=== PATIENT | female | born 1965 | race Two or more races ===

== ENCOUNTER 2019-02-02 09:44 | Inpatient (IN) | payer MEDICAID ==
[2019-01-19 11:08] LABS: BASOPHILS % (AUTO) 1.3 % (0.0-2.0); EOSINOPHILS % (AUTO) 3.6 % (0.0-3.0); HEMATOCRIT 47.2 % (37.0-47.0); HEMOGLOBIN 15.7 G/DL (12.0-16.0); LYMPHOCYTES % (AUTO) 33.1 % (20.0-45.0); MEAN CORPUSCULAR VOLUME 86 FL (80-99); MONOCYTES % (AUTO) 7.1 % (1.0-10.0); NEUTROPHILS % (AUTO) 54.8 % (45.0-75.0); PLATELET COUNT 468 K/UL (150-450); RED BLOOD COUNT 5.49 M/UL (4.20-5.40); RED CELL DISTRIBUTION WIDTH 12.2 % (11.6-14.8)
[2019-01-19 11:13] LABS: APPEARANCE,URINE SLIGHTLY CLOUDY; BILIRUBIN, URINE NEGATIVE (NEGATIVE); GLUCOSE, URINE (UA) NEGATIVE (NEGATIVE); KETONES,URINE NEGATIVE (NEGATIVE); LEUKOCYTE ESTERASE ,URINE 1+ (NEGATIVE); NITRITE,URINE POSITIVE (NEGATIVE); PH,URINE 5 (4.5-8.0); PROTEIN,URINE NEGATIVE (NEGATIVE); UROBILINOGEN,URINE NORMAL MG/DL (0.0-1.0)
[2019-01-19 11:19] LABS: ANION GAP 7 mmol/L (5-15); BLOOD UREA NITROGEN 15 mg/dL (7-18); CALCIUM 10.3 MG/DL (8.5-10.1); CARBON DIOXIDE 28 MMOL/L (21-32); CHLORIDE 108 MMOL/L (98-107); CREATININE 0.7 MG/DL (0.55-1.30); POTASSIUM 4.8 MMOL/L (3.5-5.1); SODIUM 143 MMOL/L (136-145)
[2019-01-19 11:22] LABS: COLOR,URINE YELLOW
--- NOTE | 2019-01-27 15:44 | Cardiology Report ---
APPROVED REPORT EKG Measurement Heart [id number] Sinus bradycardia Low voltage QRS Borderline ECG
--- NOTE | 2019-01-30 05:45 | Pre-op HX & Phy Repo 2 SIG ---
DATE OF ADMISSION: 02/02/2019 SCHEDULED FOR SURGERY: February 02, 2019. HISTORY OF PRESENT ILLNESS: The patient is a 53-year-old female in overall stable health with invasive ductal carcinoma of the left breast. The patient presented with a left breast mass. Mammogram revealed a 3.3 cm spiculated mass at 9 o'clock in the left breast. Ultrasound revealed a benign nodule and cyst in the right breast, but in the left breast at 9 o'clock 5 cm from the nipple is a 3.2 x 3 cm x 2.3 cm mass. Core biopsy has revealed invasive ductal carcinoma. Also in the left breast at 11 o'clock 3 cm from the nipple is a 1.3 x 1.3 x 0.8 cm nodule somewhat enlarged from prior evaluation and core biopsy has revealed fibroadenoma. The patient has no prior history of breast disease. No family history of breast cancer. The tumor is estrogen receptor positive, progesterone receptor negative, HER2 negative. Ki-67 borderline at 14%. The patient also states she has dark greenish discharge from both nipples for two years, which is only present when evoked and squeezing the nipple, never spontaneous. The patient is seen by Oncology consultation recommended proceeding with surgery and determining additional treatments based on final pathology. PAST MEDICAL HISTORY AND MEDICATIONS: Enalapril for hypertension. ALLERGIES: None. OPERATIONS: Total abdominal hysterectomy 2003, removal of ovarian tumor 2013, bariatric surgery in August 2018. PHYSICAL EXAMINATION: VITAL SIGNS: The patient is 5 foot 2 inches, 205 pounds. Vital signs within normal limits. HEENT: Within normal limits. LUNGS: Clear. HEART: Regular rate and rhythm. BREASTS: Moderately large and ptotic. Right breast has no palpable mass. Left breast has a 3 cm mass at 9 o'clock, midway between the areola and the periphery. There is no fixation to the underlying chest wall. There is no palpable axillary or supraclavicular lymphadenopathy. ABDOMEN: Soft. PELVIC AND RECTAL: Per primary care. EXTREMITIES: Without edema. NEUROLOGIC: Physiologic. IMPRESSION: Invasive ductal carcinoma, left breast. PLAN: Left breast partial mastectomy and left axillary lymph node biopsy. I have had a full discussion with the patient regarding the nature of her condition, the nature of the surgery, indications, alternatives, options, and risks including bleeding, infection, neuritis or neuralgia, scarring or distortion of breast or nipple, need for additional treatment including radiation to the breast, possible chemotherapy or hormonal treatment based on final pathology, etc. All questions have been answered. She understands and agrees to proceed. Eleazar Silva M.D. DR: PRECIOUS JOB#: [id number] CC:
[~2019-02-02] VITALS: Ht 158 cm; Wt 94.3 kg
[2019-02-02] VITALS (13 sets, daily range): BP systolic 127–161; BP diastolic 73–98
[2019-02-02] MEDS ORDERED: Bupivacaine 0.5% Inj 30 ml vial INJ ONE (10:07)
[2019-02-02] MEDS ORDERED: Bacitracin 50000 Units Vial ONE (10:07)
[2019-02-02] MEDS ORDERED: Lidocaine 1% 10mg/ml/Epi 0.005mg/ml 30ml vial INJ ONE (10:07)
[2019-02-02] MEDS ORDERED: NS Irrig 1000ml IRRIG ONE ×2 (10:12→10:46)
[2019-02-02] MEDS ORDERED: ENALAPRIL MALEA10 MG ORAL (10:16)
--- NOTE | 2019-02-02 11:05 | Pre-Procedure Note/Attestation ---
Pre-Procedure Note/Attestation Complete Prior to Procedure Planned Procedure: left Procedure Narrative: left breast partial mastectomy and left axillary lymph node biopsy Indications for Procedure Pre-Operative Diagnosis: invasive ductal carcinoma left breast Attestation I attest that I discussed the nature of the procedure; its benefits; risks and complications; and alternatives (and the risks and benefits of such alternatives ), prior to the procedure, with the patient (or the patient's legal airline security representative). I attest that, if there was a reasonable possibility of needing a blood transfusion, the patient (or the patient's legal airline security representative) was given the [facility] standardized written summary, pursuant to the [place] Blood Safety Act ([place] Health and Safety Code # 1645, as amended). I attest that I re-evaluated the patient just prior to the surgery and that there has been no change in the patient's H&P, except as documented below: none Eleazar Silva MD Feb 02, 2019 11:05
[2019-02-02] MEDS ORDERED: DiphenhydrAMINE 50mg/ml Inj IVP PRN (11:30)
[2019-02-02] MEDS ORDERED: LR 1000ml 1,000 ML IVLG SCH (11:30)
[2019-02-02] MEDS ORDERED: Midazolam 2mg/2ml Inj IVP PRN (11:30)
[2019-02-02] MEDS ORDERED: Sterile Water Irrig 1000ml IRRIG ONE (11:30)
[2019-02-02] MEDS ORDERED: Labetalol 5mg/ml 20ml vial IV PRN (11:30)
[2019-02-02] MEDS ORDERED: oxyCODONE HCL/Acetaminophen 5/325mg ORAL PRN (11:30)
[2019-02-02] MEDS ORDERED: LR 1000ml ONE (11:30)
[2019-02-02] MEDS ORDERED: Metoclopramide 10mg/2ml Inj IVP PRN (11:30)
[2019-02-02] MEDS ORDERED: fentaNYL 100 mcg/2 mL IV PRN (11:30)
[2019-02-02] MEDS ORDERED: Acetaminophen (Non formulary) 100 ML IV ONE (11:30)
[2019-02-02] MEDS ORDERED: Atropine Sulfate 0.4mg/ml inj IVP PRN (11:30)
[2019-02-02] MEDS ORDERED: Meperidine 50mg/ml Inj(FOR RIGORS ONLY) IVP PRN (11:30)
[2019-02-02] MEDS ORDERED: HYDROcodone/Acetamin 7.5/325 tab ORAL PRN (11:30)
[2019-02-02] MEDS ORDERED: HYDROcodone/Acetamin 5/325 tab ORAL PRN ×2 (11:30→13:30)
[2019-02-02] MEDS ORDERED: Ketorolac 30mg Inj IV PRN ×2 (11:30)
[2019-02-02] MEDS ORDERED: LORazepam Inj 2mg/ml 1ml IV PRN (11:30)
[2019-02-02] MEDS ORDERED: Hydromorphone 0.5mg/0.5ml inj IVP PRN (11:30)
--- NOTE | 2019-02-02 11:32 | Anethesia Preoperative Eval ---
Anesthesia Pre-op PMH/ROS General Date of Evaluation: Feb 02, 2019 Anesthesiologist: Jose Antonio ASA Score: ASA 3 Mallampati Score Class I : Soft palate, uvula, fauces, pillars visible Class II: Soft palate, uvula, fauces visible Class III: Soft palate, base of uvula visible Class IV: Only hard plate visible Mallampati Classification: Class II Surgeon: Ricardo Diagnosis: L Breast CA Surgical Procedure: Left Breast Partial Mastectomy, Left Axillary Node Dissection Anesthesia History: none Family History: no anesthesia problems Allergies: Coded Allergies: No Known Allergies (Unverified , 02/02/19) Medications: see eMAR Patient NPO?: Yes NPO Date: Feb 01, 2019 NPO Time: 2300 Past Medical History Cardiovascular: Reports: HTN HEENT: Reports: cataract (L), cataract (R) Hematology/Immune: Reports: other - L Breast CA Other: obesity - BMI 36 PSxH Narrative: MARK Anesthesia Pre-op Phys. Exam Physician Exam Last Vital Signs Date Time Temp Pulse Resp B/P (MAP) Pulse Ox O2 Delivery O2 Flow Rate FiO2 02/02/19 10:17 Room Air 02/02/19 10:13 97.2 54 18 127/73 (91) 96 Constitutional: NAD Neurologic: CN 2-12 intact Cardiovascular: RRR Respiratory: CTA Gastrointestinal: S/NT/ND Airway Exam Mallampati Score: Class II MO: full ROM: full Teeth: intact Anesthesia Pre-op A/P Risk Assessment & Plan Assessment: ASA 3 Plan: GA, SED, GlideScope Go Status Change Before Surgery: No Pre-Antibiotics Dru Gram Ancef IV Given Within 1 Hr of Incision: Yes Time Given: 11:46 Jose Brady MD Feb 02, 2019 11:32
[2019-02-02] MEDS ORDERED: Dexamethasone 4mg/ml vial ONE (11:35)
[2019-02-02] MEDS ORDERED: Sodium Chloride 10ml vial INJ ONE (11:35)
[2019-02-02] MEDS ORDERED: Lidocaine 1% MPF 10mg/ml 5ml ONE (11:35)
[2019-02-02] MEDS ORDERED: Propofol 200mg/20ml IV ONE (11:35)
[2019-02-02] MEDS ORDERED: Lidocaine 1% Plain 30 ml INJ ONE (11:36)
--- NOTE | 2019-02-02 12:17 | Immediate Post-Op Evaluation ---
Immediate Post-Op Evalulation Immediate Post-Op Evalulation Procedure: Left Breast Partial Mastectomy, Left Axillary Node Dissection Date of Evaluation: Feb 02, 2019 Time of Evaluation: 13:47 IV Fluids: 800 LR Blood Products: 0 Estimated Blood Loss: 25 Urinary Output: 0 Blood Pressure Systolic: 151 Blood Pressure Diastolic: 98 Pulse Rate: 74 Respiratory Rate: 16 O2 Sat by Pulse Oximetry: 100 Temperature (Fahrenheit): 97.6 Pain Score (1-10): 2 Nausea: No Vomiting: No Complications 0 Patient Status: awake, reacts, patent, extubated, none Hydration Status: adequate Dru Gram Ancef IV Given Within 1 Hr of Incision: Yes Time Given: 11:46 Jose Brady MD Feb 02, 2019 12:17
[2019-02-02] MEDS ORDERED: fentaNYL 100 mcg/2 mL IV ONE (12:38)
[2019-02-02] MEDS ORDERED: HYDROmorphone 1mg/ml Carpuject SUBQ PRN (13:30)
--- NOTE | 2019-02-02 13:38 | Brief Operative Note ---
Immediate Post Operative Note Operative Note Pre-op Diagnosis: invasive ductal carcinoma left breast Procedure: left breast partial mastectomy, excision of additional breast nodule, excision of left breast skin lesion, left axillary lymph node biopsy Post-op Diagnosis: same Post-op Diagnosis: same as pre-op Findings: consistent w/pre-op dx studies Surgeon: adrienne Anesthesiologist: lon Anesthesia: general Specimen: yes - left breast tissue and left axillary lymph nodes Complications: none Condition: stable Fluids: see anesthesia record Estimated Blood Loss: minimal Drains: HAILEY Implant(s) used?: No Eleazar Silva MD Feb 02, 2019 13:38
--- NOTE | 2019-02-02 14:40 | NUR ---
NURSE NOTES: Doris RN brought patient by bed in stable condition. Alert and oriented x4. No complain of pain or distress at this time. Skin intact and dry. Surgical dressing intact and dry. HAILEY patent and draining well. Belonging given to family member. IV dressing intact and dry. Bed lowest position. Call light within reach. Will continue to monitor.
[2019-02-02] MEDS: D5 1/2NS w/KCl 20mEq 1,000 ML IV SCH (16:38)
--- NOTE | 2019-02-02 16:55 | NUR ---
NURSE NOTES: Patient voided yellow urine. No complain of pain or discomfort at this time. Will continue to monitor.
--- NOTE | 2019-02-02 20:00 | NUR ---
NURSE NOTES: Patient received in bed, aaox4, no complaints of pain at this time. IVF infusing as ordered. SCDs on. Surgical bra applied. HAILEY drain bulb compressed. Upon shift change rounding, AM shift RN showed patient how to empty bulb and recompress it. Verbalized understanding. Call light in reach. Will monitor.
[2019-02-02] MEDS: ceFAZolin sod 1 GM in D5W 55 ML IV SCH (20:04)
--- NOTE | 2019-02-02 21:15 | Operative Note - Dictated ---
DATE OF OPERATION: 02/02/2019 SURGEON: Eleazar Silva M.D. CASH MANAGEMENT OFFICER: None. ANESTHESIOLOGIST: Jose Brady M.D. TYPE OF ANESTHESIA: General. PREOPERATIVE DIAGNOSES: 1. Invasive ductal carcinoma of the left breast. 2. Enlarging left breast fibroadenoma. 3. Abnormal skin lesion of upper left breast. POSTOPERATIVE DIAGNOSES: 1. Invasive ductal carcinoma of the left breast. 2. Enlarging left breast fibroadenoma. 3. Abnormal skin lesion of upper left breast. OPERATION PERFORMED: 1. Left breast partial mastectomy with excision of additional breast nodule and excision of left breast skin lesion. 2. Left axillary lymph node biopsy. DESCRIPTION OF PROCEDURE: The patient was taken to the operating room and under general anesthesia with sequential compression device stockings in place, she was prepped and draped in the usual fashion. The lesion was located in the left breast upper inner quadrant. A wide resection was performed encompassing a partial mastectomy and the specimen oriented with sutures anterior, superior, and medial. The specimen was given to the pathologist, who found margins to be clear. The additional breast nodule, which was on imaging an enlarging fibroadenoma by core biopsy was located and excised also in the upper inner quadrant. The skin lesion was elliptically excised. After prepping and draping, it did look abnormal and accordingly I felt it needed to be removed. An axillary incision was made achieving hemostasis with cautery and incising the clavipectoral fascia using the Thunderbeat electrosurgical device. Lymph node biopsy was performed with large lymph node confirmed by pathology and additional lymph nodes removed. The field was irrigated and hemostasis secured with cautery. The breast incision was closed with continuous 3-0 Vicryl and deep dermal subcutaneous sutures after irrigating and ascertaining hemostasis was secured and the skin closed with 4-0 Monocryl continuous subcuticular suture. The skin lesion excision was closed with interrupted 3-0 nylon vertical mattress sutures. The axillary incision was closed with 3-0 Vicryl clavipectoral fascia and subcutaneous tissues after inserting a #10 flat Zoltan-Pham, which was sutured to the skin with a 2-0 nylon skin suture. The axillary skin incision was closed with continuous 4-0 Monocryl subcuticular suture, Mastisol, and half-inch Steri-Strips were applied to all incisions followed by Telfa and dry sterile dressing. Final sponge and needle counts were correct. The patient tolerated the procedure well and left the operating room in good condition. Eleazar Silva M.D. DR: DEEPIKA JOB#: [id number] CC:
[2019-02-03] VITALS: BP 131/82
[2019-02-03] MEDS: D5 1/2NS w/KCl 20mEq 1,000 ML IV SCH (02:39)
[2019-02-03] MEDS: ceFAZolin sod 1 GM in D5W 55 ML IV SCH (02:39)
[2019-02-03 04:00] VITALS: BP 146/76
--- NOTE | 2019-02-03 07:26 | NUR ---
HAND-OFF: Report given to Akhil STEELE.
[2019-02-03 08:00] VITALS: BP 121/68
--- NOTE | 2019-02-03 11:41 | General Progress Note ---
Progress Note Progress Note AVSS doing well needed no analgesics left breast and axilla with intact steristrips HAILEY 8cc serosang Imp: Stable Plan: discharge with HAILEY drain f/u office 02/09 Rx - none needed per patient instructions/limitations/supplies discussed/provided Eleazar Silva MD Feb 03, 2019 11:41
--- NOTE | 2019-02-03 11:46 | NUR ---
NURSE NOTES: Received report Fide RN, pt a/a/o x4 laying in bed with no signs of distress or other issues at this time. surgical dressing dry and intact. HAILEY drain, total output over night 5ml. pt able to ambulate around the unit with no signs of distress or other issues at this time. at bed side. call light within reach, bed in lowest position, side rales up x2. I will f/u as needed.
[2019-02-03 12:00] VITALS: BP 129/82
--- NOTE | 2019-02-03 12:33 | NUR ---
CASE MANAGEMENT:REVIEW 02/02/19 53 YR OLD FEMALE HERE FOR ELECTIVE SURGERY SI: LT BREAST CARCINOMA 97.2 54 18 127/73 96% ON RA IS: TO SURGERY FOR : PARTIAL MASTECTOMY W/EXCISION OD ADDITIONAL BREAST NODULE AND EXCISION OF LT BREAST LESION : TO MED/SURG SURG 3EAST POST OP INTERQUAL CRITERIA MET 02/03/19 DISCHARGED HOME
--- NOTE | 2019-02-03 14:58 | NUR ---
NURSE NOTES: Received order to d/c home today. discharge instructions and belongings list given to patient and pt's . IV removed prior to d/c. supplies given for dressing changed also given instructions on how to empty HAILEY drain. patient verbalized understanding. pt left the floor ambulating with no signs of distress or other issues at this time. pt's will provide transportation. I will f/u as needed.
[2019-02-03] MEDS ORDERED: Tubing IV Secondary IV ONE (14:59)
--- NOTE | 2019-02-03 19:26 | Discharge Summary ---
Discharge Summary Hospital Course Date of Admission Feb 02, 2019 at 15:05 Date of Discharge Feb 03, 2019 at 15:00 Admitting Diagnosis Invasive ductal carcinoma, left breast. Reason for Hospitalization: Elective surgery [facility] Mcclure is a 53 year old female who was admitted on Feb 02, 2019 at 15:05 for Invasive ductal carcinoma, left breast. Patient was admitted for elective surgery. Procedures s/p 02/02/19 by 1. Left breast partial mastectomy with excision of additional breast nodule and excision of left breast skin lesion. 2. Left axillary lymph node biopsy. Hospital Course status post surgery course of recovery uneventful initially IV fluids s/p perioperative antibiotics left breast and axilla with intact steri-strips HAILEY drain with small amount/ 8cc of serosanguineous drainage patient was taught to how to care for HAILEY drain. pain management addressed ; pain controlled Patient remain hemodynamically stable ambulated in hallway use of incentive spirometry was encouraged while in the bed tolerated diet , IV fluids discontinued antiemetics were on board as needed blood pressure was managed with Vasotec and remained stable voided freely patient was stable for discharge patient was discharged with a HAILEY drain. prescription- none needed as per patient discharge instructions/limitations/supplies discussed/provided patient to follow-up in the office on 02/09 FINAL DIAGNOSIS 1. Invasive ductal carcinoma of the left breast. 2. Enlarging left breast fibroadenoma. 3. Abnormal skin lesion of upper left breast 4. s/p left breast partial mastectomy, excision of additional breast nodule, excision of left breast skin lesion, left axillary lymph node biopsy 5. Hypertension Discharge Condition Upon Discharge: stable Discharge Disposition Patient was discharged home Discharge Instructions Discharge Instructions Special Instructions I have been assigned to complete a D/C Summary on this account. I was not involved in the patient management Doris Bedolla NP Feb 03, 2019 19:26
== END 2019-02-03 15:00 | disposition home or self-care (01) | DRG 363 ==
LOC: SUR 09:44 → 3E 15:05
PROC: 07B60ZX Excision of Left Axillary Lymphatic, Open Approach, Diagnostic (ICD-10-PCS; 2019-02-02)
PROC: 0HBU0ZZ Excision of Left Breast, Open Approach (ICD-10-PCS; principal; 2019-02-02 11:30)
DX: C50.812 Malignant neoplasm of overlapping sites of left female breast (principal); Z17.0 Estrogen receptor positive status [ER+]; Z90.710 Acquired absence of both cervix and uterus; D24.2 Benign neoplasm of left breast; L98.9 Disorder of the skin and subcutaneous tissue, unspecified
CPT/HCPCS: 36415; 80048; 81001; 85025; 85610; 85730; 87081; 87086; 87181; 93005; 94003; 94150; J2405